=== PATIENT | female | born 1975 | race Native Hawaiian/Other Pacific Islander ===

== ENCOUNTER 2016-04-05 07:31 | Day surgery (SDC) | payer MEDICARE ==
[~2016-04-05] VITALS: Ht 175.3 cm; Wt 86.4 kg
[~2016-04-05 07:31] MED LIST: DEFE1TAB2 PO; LEVO25TA4 PO; METF500T PO; METO25TA3 PO; VITA10006 PO
[2016-04-05 08:00] VITALS: BP 118/77; PULSE 64; RESP 20; TEMP 97.9; O2SAT 90
[2016-04-05] MEDS ORDERED: SODIUM CHLOR 0.9% 1000 ML INJ 1,000 ML IV SCH (08:15)
[2016-04-05] MEDS ORDERED: XARE15TA PO (08:22)
[2016-04-05] MEDS ORDERED: fentaNYL CITRATE 250 MCG/5 ML AMP ONE (09:13)
[2016-04-05] MEDS ORDERED: MIDAZOLAM HCL 5 MG/5 ML VIAL ONE (09:13)
[2016-04-05] MEDS ORDERED: LIDOCAINE 1%/EPINEPHrine 1:100,000 SOLN 20 ML VIAL ONE (09:25)
[2016-04-05] MEDS ORDERED: IOHEXOL 350 MG/ML 100 ML BTL (for RAD DIAG) OTHER ONE (10:45)
[2016-04-05] MEDS ORDERED: IOHEXOL 350 MG/ML 100 ML BTL (for RAD DIAG) IV ONE (10:45)
[2016-04-05 11:40] VITALS: BP 126/71; PULSE 77; RESP 18; TEMP 97.6; O2SAT 92
--- NOTE | 2016-04-05 11:48 | PD.RAD ---
Post Procedure Progress Note Pre Procedure Diagnosis: (1) SVC syndrome Post Procedure Diagnosis: (1) SVC syndrome Procedure Date: Apr 05, 2016 Supervising Radiologist: Petr Jimenez Proceduralist/Assist: RT Macrina(R)() Anesthesia: Local, Conscious Sedation Plan of Activity Patient to Unit: ROPU Patient Condition: Good See PACS Report for procedural detail/treatment Vascular-Venous Procedure Procedure 1 Procedure Site: Thoracic Procedure(s): Venogram Access Access Site(s): Right Jugular Vein Closure Site(s): Right manual pressure Findings: SVC stenosis minimal with minimal pressure gradient and resolution of collateral filling Central Venous Access Device Procedure 1 Right Internal Jugular Infusaport Removal single lumen Petr Jimenez MD Apr 05, 2016 11:48
[2016-04-05 11:55] VITALS: BP 113/64; PULSE 66; RESP 17; O2SAT 98
[2016-04-05 12:25] VITALS: BP 136/72; PULSE 65; RESP 16; O2SAT 92
[2016-04-05 12:55] VITALS: BP 129/78; PULSE 72; RESP 17; O2SAT 98
--- NOTE | 2016-04-05 16:39 | RADRPT ---
EXAM DATE/TIME: 04/05/2016 09:34 COMPARISON: VENOGRAM, SUPERIOR VENA CAVA, February 15, 2016, 9:01. INDICATIONS : Patient with central venous stenosis in need of venogram. MEDICAL HISTORY : Beta Thalasemmia Major, Chronic iron overload, Abdominal Mass, Hematopoiesis, Leukocytosis, Type 2 DM , Reactive thrombosis, DDD SURGICAL HISTORY : Appendectomy, Splenectomy, SVC Venogram, Port placement ENCOUNTER: Subsequent ACUITY: 4 - 6 months PAIN SCORE: 0/10 FLUORO TIME: 2.1 minutes ACCESS SITE: Right Internal jugular vein SEDATION TIME: 60 minutes CONTRAST: 1.) 40 cc Omnipaque (iohexol) 350 MEDICATION(S): 1.) 2.5 mg midazolam (Versed) IV 2.) 150 mcg fentanyl (Sublimaze) IV PROCEDURE: The right neck was anesthetized with local anesthetic. Under direct ultrasound guidance, micropunctur e access was accomplished into the right internal jugular vein. Subtraction venography was performed with imaging over the chest for visualization of the superior vena cava. A 4 [place] Berenstein cathet er was introduced and additional imaging was performed including oblique views. The catheter was adva nced into the right atrium and pullback pressure gradient measurements were obtained back into the ju gular vein from the atrium. The catheter was removed and hemostasis was achieved at the right neck wi th direct pressure. The patient tolerated the procedure well and was taken to the recovery area in st able condition. Conscious sedation was performed as described above. Noninvasive monitoring was stabl e throughout. FINDINGS: There has been interval removal of a right chest port. The superior vena cava is patent with only min imal eccentric stenosis now seen in the low SVC. There is excellent flow of injected contrast directl y into the atrium with no filling of collateral vessels. Specifically, the azygos system is not opaci fied. Pullback pressure gradient measurements from the atrium back through to the jugular vein reveal only 2 or 3 mm Hg pressure gradient. CONCLUSION: Significantly improved appearance. Interval removal of right chest port. Minimal residual SVC stenosi s without significant collateral filling and with minimal pressure gradient. Petr Jimenez MD on April 05, 2016 at 16:09 Board Certified Radiologist. This report was verified electronically.
--- NOTE | 2016-04-05 17:22 | RADRPT ---
EXAM DATE/TIME: 04/05/2016 00:00 [facility] COMPARISON: No previous studies available for comparison. INDICATIONS : Patient with central venous stenosis in need of port removal. MEDICAL HISTORY : Beta Thalasemmia Major, Chronic iron overload, Abdominal Mass, Hematopoiesis, Leukocytosis, Type 2 DM , Reactive thrombosis, DDD SURGICAL HISTORY : Appendectomy, Splenectomy, SVC Venogram, Port placement ENCOUNTER: Initial ACUITY: 4-6 months PAIN SCORE: 0/10 SEDATION TIME: 60 minutes 1.) 2.5 mg midazolam (Versed) IV 2.) 150 mcg fentanyl (Sublimaze) IV Prophylactic antibiotics were administered with appropriate pre-procedure timing. Vancomycin within 2 hrs of procedure, Ancef (or alternative) within 1 hr of procedure. PROCEDURE : 1. Removal of [id number]. 2. Conscious sedation with continuous EKG and oximetry monitoring. The risk, benefits and potential complications of Uvqvgm-s-[id number] removal were discussed. Written conse nt was obtained. The patient was placed supine. The chest wall was prepped in sterile fashion. Full sterile techniqu e was used, including cap, mask, sterile gloves and gown, and a large sterile sheet. Hand hygiene an d 2% chlorhexidine and/or Betadine/alcohol prep was utilized per protocol for cutaneous antisepsis. The skin and subcutaneous tissues were infiltrated with local anesthetic solution. A small incision w as made, the subcutaneous pocket was opened. The port was dissected from the subcutaneous tissues and easily removed in one piece. The pocket incision was closed with subcuticular Vicryl suture. Steri -Strips were applied. Conscious sedation was performed with the prescribed dosages and duration as above. The patient tole rated the procedure well and there were no complications. EKG and oximetry remained stable throughou t the procedure. The patient was sent to post anesthesia recovery in stable condition. CONCLUSION: Uncomplicated port removal as above. Petr Jimenez MD on April 05, 2016 at 17:20 Board Certified Radiologist. This report was verified electronically.
== END 2016-04-05 13:45 | disposition home or self-care (01) ==
LOC: HRIP 07:31 → HROP 07:31
PROVIDERS: ATTEND Surgery Vascular Surgery
DX: I87.1 Compression of vein (principal); E11.9 Type 2 diabetes mellitus without complications; Z95.828 Presence of other vascular implants and grafts
CPT/HCPCS: 36010; 36590; 75827; 99152; 99153; C1769; C1887; C1894; J2250; J3010; J7030; Q9967

== ENCOUNTER → 2016-07-25 | Outpatient (CLI) | payer MEDICARE ==
[~2016-07-25] MED LIST changes: -LEVO25TA4 PO; +XARE15TA PO
[2016-07-25 13:31] LABS: AUTOMATED NEUTROPHIL # 11.9 TH/MM3 (1.8-7.7); BASOPHIL # 0.2 TH/MM3 (0-0.2); BASOPHIL % 1.4 % (0.0-2.0); EOSINOPHIL # 0.5 TH/MM3 (0-0.4); EOSINOPHIL % 2.8 % (0.0-4.0); HEMATOCRIT 26.8 % (35.0-46.0); LYMPH % 24.9 % (9.0-44.0); LYMPHOCYTE # 4.6 TH/MM3 (1.0-4.8); MEAN CELL VOLUME 83.1 FL (80.0-100.0); MEAN CORPUSCULAR HEMOGLOBIN 27.5 PG (27.0-34.0); NEUT % 64.9 % (16.0-70.0); PLATELET COUNT 714 TH/MM3 (150-450); RED BLOOD COUNT 3.23 MIL/MM3 (4.00-5.30); RED CELL DISTRIBUTION WIDTH 19.1 % (11.6-17.2); WHITE BLOOD COUNT 18.3 TH/MM3 (4.0-11.0)
[2016-07-25 13:33] LABS: HEMO FLAGS AUTO DIFF
[2016-07-25 14:01] LABS: BANDS 2 % (0-6); BASOPHILS 4 % (0-2); CORRECTED NUCLEATED RBC 29 /100 WBC (0-0); EOSINOPHILS 1 % (0-4); NEUTROPHIL # MANUAL DIFF 11.7 TH/MM3 (1.8-7.7); PLATELET ESTIMATE SMEAR HIGH (NORMAL); PLATELET MORPHOLOGY NORMAL (NORMAL); POLYS (SEG NEUTROPHILS) 62 % (16-70); SCAN/DIFF FINAL DIFF MANUAL; WBC DIFF SAMPLE 100
[2016-07-25 14:02] LABS: HOWELL-JOLLY BODIES PRESENT (NONE SEEN)
[2016-07-25 14:03] LABS: TARGET CELLS 1+ (NORMAL)
[2016-07-25 14:06] LABS: ALKALINE PHOSPHATASE 99 U/L (45-117); ALT (GPT) 26 U/L (10-53); ANION GAP 10 MEQ/L (5-15); AST (GOT) 22 U/L (15-37); BICARBONATE 25.5 MEQ/L (21.0-32.0); BLOOD UREA NITROGEN 14 MG/DL (7-18); CHLORIDE 101 MEQ/L (98-107); GLOMERULAR FILTRATION RATE 107 ML/MIN (>89); GLUCOSE,FASTING 149 MG/DL (74-99); POTASSIUM 4.1 MEQ/L (3.5-5.1); SODIUM (NA) 136 MEQ/L (136-145); TOTAL BILIRUBIN ADULT 1.6 MG/DL (0.2-1.0)
[2016-07-25 17:35] LABS: HEMOGLOBIN A1a 2.4 %; HEMOGLOBIN A1b 1.2 %; HEMOGLOBIN F 5.9 %; HEMOGLOBIN LA1C 2.6 %; HEMOGLOBIN P3 6.7 %
== END ==
LOC: PLAB 09:43
PROVIDERS: ATTEND Family Medicine
DX: R06.02 Shortness of breath (principal); E11.9 Type 2 diabetes mellitus without complications; R63.5 Abnormal weight gain; E87.70 Fluid overload, unspecified
CPT/HCPCS: 36415; 80053; 83036; 84443; 85007; 85027

== ENCOUNTER 2016-09-26 06:37 | Day surgery (SDC) | payer MEDICARE ==
[~2016-09-26] VITALS: Ht 154.9 cm; Wt 81.8 kg
[2016-09-26 06:54] VITALS: BP 107/64; PULSE 75; RESP 20; TEMP 98; O2SAT 93
[2016-09-26] MEDS ORDERED: E 101000 PO (06:56)
[2016-09-26] MEDS ORDERED: VITACRE PO (06:57)
[2016-09-26] MEDS ORDERED: VITA250C3 CHEW (06:59)
[2016-09-26] MEDS ORDERED: SODIUM CHLORIDE 0.9% 1000 ML IV SCH (07:00)
[2016-09-26] MEDS ORDERED: CHLORHEXIDINE GLUCONATE 2 % 1 PACK (2 CLOTHS) TOPICAL SCH (07:00)
[2016-09-26] MEDS ORDERED: POVIDONE IODINE 5% (ANTISEPSIS KIT) 4 APPLICATIONS EACH NARE SCH (07:00)
[2016-09-26] MEDS ORDERED: VITA200C3 PO (07:01)
[2016-09-26 07:33] LABS: APTT (PATIENT) 29.1 SEC (24.3-30.1); PROTHROMBIN TIME - PATIENT 10.8 SEC (9.8-11.6)
[2016-09-26] MEDS ORDERED: LEVOFLOXACIN 500 MG PREMIX INJ 100 ML IV ONE (07:57)
[2016-09-26] MEDS ORDERED: fentaNYL CITRATE 250 MCG/5 ML AMP ONE (07:58)
[2016-09-26] MEDS ORDERED: MIDAZOLAM HCL 5 MG/5 ML VIAL ONE (07:58)
[2016-09-26] MEDS ORDERED: LIDOCAINE 1%/EPINEPHrine 1:100,000 SOLN 20 ML VIAL ONE (08:04)
[2016-09-26] MEDS ORDERED: IOHEXOL 350 MG/ML 50 ML BTL (for RAD DIAG) IV ONE (09:15)
[2016-09-26 09:28] VITALS: BP 111/72; PULSE 77; RESP 16; TEMP 98.1; O2SAT 98
[2016-09-26] MEDS ORDERED: SODIUM CHLORIDE 0.9% FLUSH 10 ML FLUSH IVF PRN (09:30)
--- NOTE | 2016-09-26 09:32 | PD.RAD ---
Post Procedure Progress Note Pre Procedure Diagnosis: (1) Thalassemia (2) SVC syndrome Post Procedure Diagnosis: (1) Thalassemia (2) SVC syndrome Procedure Date: Sep 26, 2016 Supervising Radiologist: Ed Waggoner JR Proceduralist/Assist: Kirstie Smyth, RT(R), Nilam Nevarez RT(R)() Anesthesia: Conscious Sedation Plan of Activity Patient to Unit: ROPU Patient Condition: Good See PACS Report for procedural detail/treatment Central Venous Access Device Procedure 1 Right Internal Jugular Infusaport Placement single lumen Ivorian: 8 Findings: Venogram shows SVC to be patent. Port placed. In good position. OK to use. No heparin utilized secondary to allergy. Plan F/U with IR or a physician in 10-14 days for a site check Jr. Edilson,Ed Hwang MD Sep 26, 2016 09:32
[2016-09-26 09:43] VITALS: BP 97/59; PULSE 76; RESP 17; O2SAT 96
--- NOTE | 2016-09-26 10:05 | RADRPT ---
EXAM DATE/TIME: 09/26/2016 08:07 [facility] COMPARISON: No previous studies available for comparison. INDICATIONS : Patient with history of SVC stenosis in need of venogram. MEDICAL HISTORY : Beta thalassemia major, Chronic anemia, Chronic leukocytosis, Diabetes, Iron overload, Valve vegetati on, Left breast and facial swelling SURGICAL HISTORY : Port placement and removal, Splenectomy, SVC Venogram, Appendectomy, Left breast biopsy ENCOUNTER: Subsequent ACUITY: 4 - 6 months PAIN SCORE: 0/10 FLUORO TIME: 1 minutes IMAGE SERIES: 2 ACCESS SITE: Right Internal jugular vein SEDATION TIME: 45 minutes CONTRAST: 1.) 10 cc Omnipaque (iohexol) 350 MEDICATION(S): 1.) 5 mg midazolam (Versed) IV 2.) 250 mcg fentanyl (Sublimaze) IV PROCEDURE : 1. Ultrasound-guided puncture of the right internal jugular vein. 2. Conscious sedation with continuous EKG and Oximetry monitoring. 3. Venography of the superior vena cava The risks, benefits and alternatives to the procedure were explained and verbal and written consent w as obtained. The site was prepped in sterile fashion. Full sterile technique was used, including ca p, mask, sterile gloves and gown and a large sterile sheet. Hand hygiene and 2% chlorhexidine and/or betadine/alcohol prep was utilized per protocol for cutaneous antisepsis. The skin and subcutaneous tissues were infiltrated with local anesthetic solution. With ultrasound and fluoroscopic guidance the right internal jugular vein was punctured and a vascula r sheath was placed. Venography of the superior vena cava was performed. No significant stenosis is appreciated. Good ante grade flow into the right atrium is observed. A Port-A-Cath was therefore placed. Please see that rep ort separately. Conscious sedation was performed with the prescribed dosages and duration as above in the presence of an independent trained radiology nurse to assist in the monitoring of the patient. EKG and oximetry remained stable throughout the procedure. CONCLUSION: SVC venogram shows no significant stenosis. Ed Waggoner Jr., MD on September 26, 2016 at 9:59 Board Certified Radiologist. This report was verified electronically.
--- NOTE | 2016-09-26 10:07 | RADRPT ---
EXAM DATE/TIME: 09/26/2016 08:07 [facility] COMPARISON: No previous studies available for comparison. INDICATIONS : Patient with history of thalassemia major in need of [id number] placement for transfusions. MEDICAL HISTORY : Beta thalassemia major, Chronic anemia, Chronic leukocytosis, Diabetes, Iron overload, Valve vegetati on, Left breast and facial swelling SURGICAL HISTORY : Port placement and removal, Splenectomy, SVC Venogram, Appendectomy, Left breast biopsy ENCOUNTER: Subsequent ACUITY: 4-6 months PAIN SCORE: 0/10 FLUORO TIME: 1 minutes IMAGE SERIES: 0 SEDATION TIME: 45 minutes ACCESS: Right internal jugular vein SEDATION: 1.) 5 mg midazolam (Versed) IV 2.) 250 mcg fentanyl (Sublimaze) IV Prophylactic antibiotics were administered with appropriate pre-procedure timing. Vancomycin within 2 hours of procedure, Ancef (or alternative) within 1 hour of procedure. DEVICE: 1. 8 Hungarian single lumen Smart power port with vortex PROCEDURE : 1. Continuous pulse oximetry and EKG monitoring. 2. Intravenous conscious sedation. 3. Ultrasound guidance for venous access. 4. Fluoroscopic guided implantable central venous port placement. The patient was placed supine. The neck was prepped in sterile fashion. Full sterile technique was u sed, including cap, mask, sterile gloves and gown, and a large sterile sheet. Hand hygiene and 2% ch lorhexidine Betadine was utilized per protocol for cutaneous antisepsis with appropriate dry time for site. The skin and subcutaneous tissues were infiltrated with local anesthetic solution. Under direct ultrasound guidance, central venous access was accomplished in the targeted vessel. The ultrasound images depicting access guidance were stored and saved to PACS for permanent record. An e xisting keloid was excised. A subcutaneous pocket was created using blunt dissection. The port was i ntroduced to the pocket. The port was anchored with Prolene suture. The catheter tubing was fed throu gh a subcutaneous tunnel to the venotomy site. The catheter tubing was cut to a suitable length and then was introduced through a valved Peel-Away sheath and positioned with catheter tubing tip at the cavo-atrial junction level. The pocket incision was closed with subcuticular Vicryl suture. Steri-S trips were applied. The port was flushed with saline only given the heparin allergy. Sterile dressi ng was applied to the site. The patient tolerated the procedure well. Conscious sedation was performed with the prescribed dosages and duration as above in the presence of an independent trained radiology nurse to assist in the monitoring of the patient. EKG and oximetry remained stable throughout the procedure. The patient tolerated the procedure well and there were no complications. The patient was sent to post anesthesia recovery in stable condition. CONCLUSION: Uncomplicated ultrasound and fluoroscopic guided implanted central venous port catheter placement as described in detail above. An 8 Hungarian Power port was placed. Ed Waggoner Jr., MD on September 26, 2016 at 10:03 Board Certified Radiologist. This report was verified electronically.
[2016-09-26 10:13] VITALS: BP 100/64; PULSE 74; RESP 16; O2SAT 95
[2016-09-26 10:43] VITALS: BP 113/67; PULSE 73; RESP 18; O2SAT 97
== END 2016-09-26 11:30 | disposition home or self-care (01) ==
LOC: HRIP 06:37 → HROP 06:37
PROVIDERS: ATTEND Internal Medicine Hematology & Oncology
DX: D56.1 Beta thalassemia (principal); I87.1 Compression of vein; E11.9 Type 2 diabetes mellitus without complications; I33.0 Acute and subacute infective endocarditis
CPT/HCPCS: 36005; 36561; 75827; 76937; 77001; 85610; 85730; 99152; 99153; C1769; C1788; J1956; J2250; J3010; J7030; Q9967

== ENCOUNTER → 2017-01-11 | Outpatient (CLI) | payer MEDICARE ==
[~2017-01-11] MED LIST changes: -VITA10006 PO; +VITA200C3 PO; +VITA250C3 CHEW
[2017-01-11 16:16] LABS: ALKALINE PHOSPHATASE 91 U/L (45-117); ALT (GPT) 26 U/L (10-53); HDL CHOLESTEROL 24.6 MG/DL (40.0-60.0); LDL CHOLESTEROL DIRECT 50 MG/DL (0-99); TOTAL BILIRUBIN ADULT 1.4 MG/DL (0.2-1.0); TOTAL PROTEIN 7.8 GM/DL (6.4-8.2); TRIGLYCERIDES 142 MG/DL (42-150)
[2017-01-11 16:20] LABS: ALBUMIN 3.7 GM/DL (3.4-5.0); AST (GOT) 27 U/L (15-37); BICARBONATE 28.1 MEQ/L (21.0-32.0); BLOOD UREA NITROGEN 17 MG/DL (7-18); CALCIUM 8.7 MG/DL (8.5-10.1); CHLORIDE 100 MEQ/L (98-107); CHOLESTEROL 83 MG/DL (120-200); CHOLESTEROL/ HDL RATIO 3.37 RATIO; CREATININE 0.54 MG/DL (0.50-1.00); GLOMERULAR FILTRATION RATE 125 ML/MIN (>89); GLUCOSE,FASTING 122 MG/DL (74-99); LDL CHOLESTEROL 30 MG/DL (0-99); SODIUM (NA) 136 MEQ/L (136-145)
[2017-01-11 16:44] LABS: HEMOGLOBIN A1C 9.9 % (4.3-6.0)
[2017-01-11 17:02] LABS: BACTERIA, URINE RARE /hpf; BILIRUBIN, URINE NEG (NEG); BLOOD, URINE SMALL (NEG); GLUCOSE,URINE NEG (NEG); KETONE, URINE NEG (NEG); NITRITE,URINE NEG (NEG); PH, URINE 5.5 (5.0-8.5); SQUAMOUS EPITHELIAL CELL URINE 3 /hpf (0-5); URINE COLOR YELLOW (YELLW/STRAW); URINE LEUKOCYTE ESTERASE NEG (NEG)
== END ==
LOC: PLAB 11:44
PROVIDERS: ATTEND Family Medicine
DX: I10 Essential (primary) hypertension (principal); E03.9 Hypothyroidism, unspecified; E11.9 Type 2 diabetes mellitus without complications
CPT/HCPCS: 36415; 80053; 80061; 81001; 82043; 83036; 83721; 84443

== ENCOUNTER → 2017-01-23 | Outpatient (CLI) | payer MEDICARE | LOC: PLAB 13:57 | PROVIDERS: ATTEND Family Medicine | DX: N95.1 Menopausal and female climacteric states (principal) | CPT/HCPCS: 36415; 87040 ==

== ENCOUNTER 2017-07-18 13:18 | Day surgery (SDC) | payer MEDICARE ==
[2017-07-18 13:30] VITALS: BP 115/68; PULSE 91; RESP 18; TEMP 98.3; O2SAT 95
[2017-07-18] MEDS ORDERED: LEVO25TA4 PO (13:39)
--- NOTE | 2017-07-18 15:20 | RADRPT ---
EXAM DATE/TIME: 07/18/2017 14:23 [facility] COMPARISON: No previous studies available for comparison. INDICATIONS : Patient with non functioning port in need of port evaluation. MEDICAL HISTORY : Chronic anemia, Chronic leukocytosis, Diabetes, Beta thalassemia SURGICAL HISTORY : Multiple Infusaport placement and removal ENCOUNTER: Subsequent ACUITY: 4-6 days PAIN SCORE: 0/10 FLUORO TIME: 0.2 minutes IMAGE SERIES: 1 PROCEDURE : 1. Access of [id number]. 2. Port patency injection. The risks, benefits and alternatives to the procedure were explained and verbal and written consent w as obtained. The patient was placed supine. The port was prepped in sterile fashion. Full sterile t echnique was used, including cap, mask, sterile gloves and gown, and a large sterile sheet. Hand hyg iene and 2% chlorhexidine prep was utilized per protocol for cutaneous antisepsis with appropriate dr y time for site. The previously placed port was accessed and positive contrast was injected for evaluation. Injection demonstrates the catheter to be intact and patent. Small fibrin sheath at the port tip. Port cathete r is in excellent position. CONCLUSION: 1. Small fibrin sheath at the catheter tip which is otherwise in excellent position within the centra l venous system. 2. Port will be locked with 2 mg of TPA Dragan Rosen MD on July 18, 2017 at 15:15 Board Certified Radiologist. This report was verified electronically.
[2017-07-18] MEDS ORDERED: ALTEPLASE RECOMBINANT 2 MG VIAL IV ONE (16:00)
== END 2017-07-18 15:25 | disposition home or self-care (01) ==
LOC: HROP 13:18 → HRIP 13:20 → HROP 15:25
PROVIDERS: ATTEND Internal Medicine Hematology & Oncology
DX: T85.698A Other mechanical complication of other specified internal prosthetic devices, implants and grafts, initial encounter (principal); D56.1 Beta thalassemia; D64.9 Anemia, unspecified; D72.829 Elevated white blood cell count, unspecified; E11.9 Type 2 diabetes mellitus without complications
CPT/HCPCS: 36598; J2997